=== PATIENT | male | born 1995 | race Caucasian/White ===

== ENCOUNTER 2021-04-17 21:44 | Emergency (ER) | payer OTHER ==
[~2021-04-17 21:44] MED LIST: ZITHROMAX250 MG PO
[2021-04-17] MEDS ORDERED: IBU800 MG PO (22:14)
== END 2021-04-17 22:15 | disposition home or self-care (01) ==
LOC: ER1 21:44
DX: H92.01 Otalgia, right ear (principal); M26.601 Right temporomandibular joint disorder, unspecified
CPT/HCPCS: 99282